=== PATIENT | male | born 1940 | race Caucasian/White ===

== ENCOUNTER 2021-08-28 11:37 | Inpatient (IN) | payer OTHER, MEDICARE, MEDICAID ==
[~2021-08-28] VITALS: Ht 177.8 cm; Wt 75.2 kg
[2021-08-28] MEDS ORDERED: MethylPREDNISolone SOD SUCC 125 MG/2 ML VIAL IVP ONE (11:45)
[2021-08-28] MEDS ORDERED: IPRATROPIUM BROMIDE 0.5 MG/2.5 ML NEB SOLUTION NEB ONE (11:45)
[2021-08-28] MEDS ORDERED: ALBUTEROL SULFATE 5 MG/ML 20 ML NEB SOLN [BULK] NEB ONE (11:45)
[2021-08-28 11:51] LABS: ABG BASE EXCESS 5.5 mmol/L (-2.0-3.0); ABG CARBOXYHEMOGLOBIN 0.6 % (0.0-1.5); ABG HCO3 28.8 mmol/L (22.0-26.0); ABG METHEMOGLOBIN 0.3 % (0.0-1.5); ABG OXYGEN CONTENT 15.4 mL/dL (15.0-23.0); ABG OXYGEN SATURATION 95.6 % (95.0-98.0); ABG OXYHEMOGLOBIN 94.7 % (94.0-100.0); ABG PCO2 47 mmHg (35-45); ABG TOTAL HEMOGLOBIN 11.5 G/dL (12.0-18.0); PO2, ARTERIAL BG 76.9 mmHg (71.0-79.0); SITE, BLOOD GAS LFT RADIAL; SOURCE, BLOOD GAS ARTERIAL; TEMPERATURE, FAHRENHEIT, BG 99.2 FAHREN (96.0-98.6)
[2021-08-28 11:52] LABS: ABG A-A DIFF O2 587.9 mmHg (10-20.0); O2 DEVICE,BLOOD GAS CPAP (ROOM AIR)
[2021-08-28 12:11] LABS: COVID AG,FIA SOURCE NASAL SWAB
[2021-08-28 12:11] LABS: BASOPHILS % (AUTO) 0.3 % (0.0-2.0); EOSINOPHILS % (AUTO) 2.6 % (1.0-6.0); HEMATOCRIT 32.7 % (41-53); HEMOGLOBIN 10.9 g/dL (13.5-17.5); LYMPHOCYTES # (AUTO) 0.5 K/uL (1.0-4.8); LYMPHOCYTES % (AUTO) 3.4 % (22.0-44.0); MEAN CORPUSCULAR HEMOGLOBIN 33.6 pg (26.0-34.0); MEAN CORPUSCULAR HGB CONC 33.4 G/dL (31.0-37.0); MEAN CORPUSCULAR VOLUME 101 fL (80-100); MONOCYTES # (AUTO) 1.3 K/uL (0.1-1.0); MONOCYTES % (AUTO) 8.2 % (2.0-9.0); NEUTROPHILS # (AUTO) 13.2 K/uL (1.8-7.7); PLATELET COUNT (AUTO) 228 K/uL (150-450); RED BLOOD CELL COUNT(AUTO) 3.25 MIL/uL (4.50-5.90); RED CELL DISTRIBUTION WIDTH 15.4 % (11.5-14.5)
[2021-08-28 12:12] LABS: NEUTROPHILS % (AUTO) 85.5 % (40.0-70.0)
[2021-08-28] MEDS ORDERED: 0.9% SODIUM CHLORIDE 15 ML NEB SOLUTION NEB ONE (12:12)
[2021-08-28 12:23] LABS: ANION GAP 12 mmol/L (8-16); CALCIUM, TOTAL 8.5 mg/dL (8.8-10.5); CARBON DIOXIDE 31 mmol/L (22-29); CHLORIDE 97 mmol/L (98-107); CREATININE 0.85 mg/dL (0.60-1.30); D-DIMER 2.88 mg/L FEU (0.00-0.50); GLOMERULAR FILTR. RATE CALC > 60 mL/min (>60); GLUCOSE,RANDOM 160 mg/dL (70-110); POTASSIUM 4.2 mmol/L (3.5-5.1); PROTHROMBIN TIME 10.8 SEC (9.4-11.6); SODIUM SERUM 140 mmol/L (136-145); UREA NITROGEN, BLOOD 23 mg/dL (7-18)
[2021-08-28 12:29] LABS: ALANINE AMINOTRANSFERASE 34 U/L (12-78); ALBUMIN 2.9 g/dL (3.4-5.0); ALKALINE PHOSPHATASE 74 U/L (46-116); ASPARTATE AMINOTRANSFERASE 27 U/L (15-37); BILIRUBIN,TOTAL 0.6 mg/dL (0.1-1.0); CREATINE KINASE, TOTAL ONLY 40 U/L (39-308); TOTAL PROTEIN, SERUM 7.4 g/dL (6.4-8.2)
[2021-08-28 12:33] LABS: B-TYPE NATRIURETIC PEPTIDE 229 pg/mL (0-100); LACTIC ACID 3.4 mmol/L (0.4-2.0)
[2021-08-28] MEDS ORDERED: AZITHROMYCIN 500 MG/NS 250 ML IV ONE (12:45)
[2021-08-28] MEDS ORDERED: CefTRIAXone 1 GM/DEXTROSE 50 ML IV ONE (12:45)
[2021-08-28] MEDS ORDERED: SODIUM CHLORIDE 0.9% 2,300 ML IV ONE (12:45)
[2021-08-28] MEDS ORDERED: ACETAMINOPHEN 1000 MG/ISO-OSM 100 ML IV ONE (13:15)
[2021-08-28] MEDS ORDERED: ACETAMINOPHEN 325 MG TABLET PO PRN (15:30)
[2021-08-28] MEDS ORDERED: ONDANSETRON HCL 4 MG/2 ML VIAL IVP PRN (15:30)
[2021-08-28] MEDS ORDERED: ZOLPIDEM TARTRATE 5 MG TABLET PO PRN (15:30)
[2021-08-28] MEDS ORDERED: MAGNESIUM HYDROXIDE SUSPENSION 30 ML UDCUP PO PRN (15:30)
[2021-08-28 15:38] LABS: INFLUENZA TYPE A NEGATIVE FOR TYPE A (NEGATIVE); INFLUENZA TYPE B NEGATIVE FOR TYPE B (NEGATIVE)
[2021-08-28] MEDS ORDERED: DOCU-350 PO (15:42)
[2021-08-28] MEDS ORDERED: SULF-261 PO (15:42)
[2021-08-28] MEDS ORDERED: NYST30CR9 TP (15:42)
[2021-08-28] MEDS ORDERED: FLUT16H NASAL (15:42)
[2021-08-28] MEDS ORDERED: DOCU-385 PO (15:42)
[2021-08-28] MEDS ORDERED: APIX5TAB PO (15:42)
[2021-08-28] MEDS ORDERED: NA P133E4 PR (15:42)
[2021-08-28] MEDS ORDERED: LEVO100 PO (15:42)
[2021-08-28] MEDS ORDERED: MAGN-169 PO (15:42)
[2021-08-28] MEDS ORDERED: BENZ-70 PO (15:42)
[2021-08-28] MEDS ORDERED: IPRA4AER IH (15:42)
[2021-08-28] MEDS ORDERED: FAMO20 PO (15:42)
[2021-08-28] MEDS ORDERED: BISA10SU11 PR (15:42)
[2021-08-28] MEDS ORDERED: SENN-295 PO (15:42)
[2021-08-28] MEDS ORDERED: PRED-554 PO (15:42)
[2021-08-28] MEDS: HEPARIN SODIUM,PORCINE 5,000 UNITS/ML VIAL SQ SCH ×2 (15:48→23:50)
[2021-08-28] MEDS ORDERED: PIPERACILLIN/TAZO 3.375 GM/D5W 50 ML IV ONE (16:00)
[2021-08-28] MEDS ORDERED: MethylPREDNISolone SOD SUCC 125 MG/2 ML VIAL IVP SCH (16:00)
[2021-08-28] MEDS ORDERED: BUDE10.27 IH (16:10)
[2021-08-28] MEDS ORDERED: ACET325S20 PR (16:10)
[2021-08-28] MEDS ORDERED: VANCOMYCIN HCL 1.5 GM in DEXTROSE 5%-WATER 250 ML IV ONE (16:30)
[2021-08-28] MEDS ORDERED: SODIUM CHLORIDE 0.9% 100 ML ONE (18:00)
[2021-08-28] MEDS ORDERED: IOHEXOL 350 MG/ML 100 ML VIAL ONE (18:00)
[2021-08-28] MEDS: MethylPREDNISolone SOD SUCC 125 MG/2 ML VIAL IVP SCH ×2 (18:37→23:51)
[2021-08-28 20:25] VITALS: BP 137/83
[2021-08-28] MEDS: ETHYL ALCOHOL 62% ANTISEPTIC NASAL SANITIZER 0.6 ML AMPUL NASAL SCH ×2 (21:00→21:33)
[2021-08-28] MEDS ORDERED: SODIUM CHLORIDE 0.9% 500 ML IV ONE (21:31)
[2021-08-28] MEDS: DOCUSATE SODIUM 100 MG CAPSULE PO SCH (21:33)
[2021-08-28] MEDS: PIPERACILLIN/TAZO 3.375 GM/D5W 50 ML IV SCH (21:34)
[2021-08-28 21:55] LABS: APPEARANCE,URINE CLEAR (CLEAR); BILIRUBIN,URINE NEGATIVE (NEGATIVE); GLUCOSE, URINE (UA) 70-100 mg/dL (NEGATIVE); KETONES,URINE NEGATIVE (NEGATIVE); LEUKOCYTE ESTERASE ,URINE NEGATIVE (NEGATIVE); NITRATE,URINE NEGATIVE (NEGATIVE); OCCULT BLOOD,URINE NEGATIVE (NEGATIVE); PROTEIN,URINE 30-70 mg/dL (NEGATIVE); UROBILINOGEN,URINE <=1.0 mg/dL (<=1.0)
[2021-08-28 21:56] LABS: SPECIFIC GRAVITIY, URINE > 1.030 (1.003-1.030)
[2021-08-28 22:03] LABS: BACTERIA,URINE None Seen /HPF (None Seen); RBC,URINE 0-2 /HPF (0-2); SQUAMOUS EPITHELIAL CELL,UR Rare /LPF (None Seen); WBC,URINE 0-2 /HPF (0-5)
[2021-08-28] MEDS ORDERED: LORazepam 2 MG/ML VIAL IVP ONE (22:45)
[2021-08-29] VITALS: BP 126/74
[2021-08-29] MEDS ORDERED: DEXMEDETOMIDINE HCL 400 MCG in SODIUM CHLORIDE 0.9% 96 ML IV PRN ×2 (03:45→04:15)
[2021-08-29 04:00] VITALS: BP 180/53
[2021-08-29] MEDS ORDERED: DEXMEDETOMIDINE HCL 200 MCG in SODIUM CHLORIDE 0.9% 48 ML IV PRN (04:00)
[2021-08-29] MEDS: PIPERACILLIN/TAZO 3.375 GM/D5W 50 ML IV SCH ×4 (04:29→23:08)
[2021-08-29] MEDS: DEXMEDETOMIDINE HCL 400 MCG in SODIUM CHLORIDE 0.9% 96 ML IV PRN ×2 (04:51→21:15)
[2021-08-29 05:20] LABS: BASOPHILS % (AUTO) 0.1 % (0.0-2.0); EOSINOPHILS % (AUTO) 0 % (1.0-6.0); HEMOGLOBIN 9.1 g/dL (13.5-17.5); LYMPHOCYTES # (AUTO) 0.2 K/uL (1.0-4.8); LYMPHOCYTES % (AUTO) 1.2 % (22.0-44.0); MEAN CORPUSCULAR HEMOGLOBIN 33.7 pg (26.0-34.0); MEAN CORPUSCULAR HGB CONC 33.7 G/dL (31.0-37.0); MEAN CORPUSCULAR VOLUME 100 fL (80-100); MONOCYTES # (AUTO) 0.2 K/uL (0.1-1.0); MONOCYTES % (AUTO) 1.3 % (2.0-9.0); NEUTROPHILS # (AUTO) 12.9 K/uL (1.8-7.7); PLATELET COUNT (AUTO) 196 K/uL (150-450); RED BLOOD CELL COUNT(AUTO) 2.71 MIL/uL (4.50-5.90); RED CELL DISTRIBUTION WIDTH 15.1 % (11.5-14.5)
[2021-08-29 05:27] LABS: NEUTROPHILS % (AUTO) 97.4 % (40.0-70.0)
[2021-08-29] MEDS: MethylPREDNISolone SOD SUCC 125 MG/2 ML VIAL IVP SCH ×4 (05:27→23:58)
[2021-08-29 05:31] LABS: ANION GAP 9 mmol/L (8-16); CALCIUM, TOTAL 8.1 mg/dL (8.8-10.5); CARBON DIOXIDE 30 mmol/L (22-29); CHLORIDE 100 mmol/L (98-107); CREATININE 0.75 mg/dL (0.60-1.30); GLUCOSE,RANDOM 179 mg/dL (70-110); POTASSIUM 4.6 mmol/L (3.5-5.1); SODIUM SERUM 139 mmol/L (136-145); UREA NITROGEN, BLOOD 21 mg/dL (7-18)
[2021-08-29 05:33] LABS: GLOMERULAR FILTR. RATE CALC > 60 mL/min (>60)
[2021-08-29] MEDS: DOCUSATE SODIUM 100 MG CAPSULE PO SCH ×3 (08:37→21:00)
[2021-08-29] MEDS: HEPARIN SODIUM,PORCINE 5,000 UNITS/ML VIAL SQ SCH ×2 (08:37→16:16)
[2021-08-29] MEDS: VANCOMYCIN HCL 750 MG in DEXTROSE 5%-WATER 250 ML IV SCH ×2 (08:37→20:53)
[2021-08-29] MEDS: ETHYL ALCOHOL 62% ANTISEPTIC NASAL SANITIZER 0.6 ML AMPUL NASAL SCH ×2 (08:38→21:15)
[2021-08-29] MEDS: PANTOPRAZOLE SODIUM 40 MG DR TABLET PO SCH ×2 (08:38→09:00)
[2021-08-29 20:21] VITALS: BP 116/76
[2021-08-29 20:30] VITALS: BP 177/66
[2021-08-29] MEDS: MORPHINE SULFATE 2 MG/ML SYRINGE IVP PRN (21:16)
[2021-08-30] VITALS: BP 119/69
[2021-08-30] MEDS: HEPARIN SODIUM,PORCINE 5,000 UNITS/ML VIAL SQ SCH ×4 (00:29→23:55)
[2021-08-30] MEDS: DEXMEDETOMIDINE HCL 400 MCG in SODIUM CHLORIDE 0.9% 96 ML IV PRN ×2 (03:38→14:09)
[2021-08-30] MEDS: PIPERACILLIN/TAZO 3.375 GM/D5W 50 ML IV SCH ×4 (03:39→21:45)
[2021-08-30 04:00] VITALS: BP 122/86
[2021-08-30] MEDS: MORPHINE SULFATE 2 MG/ML SYRINGE IVP PRN (04:58)
[2021-08-30] MEDS: MethylPREDNISolone SOD SUCC 125 MG/2 ML VIAL IVP SCH ×4 (05:00→23:55)
[2021-08-30 06:07] LABS: BASOPHILS % (AUTO) 0.1 % (0.0-2.0); EOSINOPHILS % (AUTO) 0 % (1.0-6.0); HEMATOCRIT 27.6 % (41-53); HEMOGLOBIN 9.4 g/dL (13.5-17.5); LYMPHOCYTES # (AUTO) 0.3 K/uL (1.0-4.8); LYMPHOCYTES % (AUTO) 2.2 % (22.0-44.0); MEAN CORPUSCULAR VOLUME 103 fL (80-100); MONOCYTES # (AUTO) 0.4 K/uL (0.1-1.0); MONOCYTES % (AUTO) 3.3 % (2.0-9.0); NEUTROPHILS # (AUTO) 12.3 K/uL (1.8-7.7); PLATELET COUNT (AUTO) 187 K/uL (150-450); RED BLOOD CELL COUNT(AUTO) 2.68 MIL/uL (4.50-5.90)
[2021-08-30 06:12] LABS: ANION GAP 10 mmol/L (8-16); CALCIUM, TOTAL 8.5 mg/dL (8.8-10.5); CARBON DIOXIDE 30 mmol/L (22-29); CHLORIDE 101 mmol/L (98-107); GLUCOSE,RANDOM 142 mg/dL (70-110); POTASSIUM 4.7 mmol/L (3.5-5.1); SODIUM SERUM 141 mmol/L (136-145); UREA NITROGEN, BLOOD 34 mg/dL (7-18)
[2021-08-30 06:17] LABS: NEUTROPHILS % (AUTO) 94.4 % (40.0-70.0)
[2021-08-30 06:23] LABS: GLOMERULAR FILTR. RATE CALC > 60 mL/min (>60)
[2021-08-30 08:00] VITALS: BP 115/92
[2021-08-30] MEDS: ETHYL ALCOHOL 62% ANTISEPTIC NASAL SANITIZER 0.6 ML AMPUL NASAL SCH ×2 (09:01→21:45)
[2021-08-30] MEDS: VANCOMYCIN HCL 1 GM in DEXTROSE 5%-WATER 250 ML IV SCH ×2 (09:01→20:28)
[2021-08-30] MEDS: PANTOPRAZOLE SODIUM 40 MG DR TABLET PO SCH (09:01)
[2021-08-30] MEDS: DOCUSATE SODIUM 100 MG CAPSULE PO SCH ×2 (09:02→21:00)
[2021-08-30 12:00] VITALS: BP 105/89
[2021-08-30] MEDS ORDERED: AMIODARONE HCL 150 MG in DEXTROSE 5%-WATER 97 ML IV ONE (13:00)
[2021-08-30] MEDS ORDERED: SODIUM CHLORIDE 0.9% 500 ML IV ONE (13:00)
[2021-08-30] MEDS ORDERED: AMIODARONE HCL 360 MG in DEXTROSE 5%-WATER 242.8 ML IV ONE (13:00)
[2021-08-30] MEDS: FUROSEMIDE 20 MG TABLET PO SCH (13:27)
[2021-08-30] MEDS: LORazepam 2 MG/ML VIAL IVP PRN ×2 (13:27→22:23)
[2021-08-30 16:00] VITALS: BP 107/87
[2021-08-30] MEDS ORDERED: FUROSEMIDE 20 MG/2 ML VIAL IVP ONE (16:15)
[2021-08-30 20:00] VITALS: BP 111/80
[2021-08-30] MEDS ORDERED: AMIODARONE HCL 540 MG in DEXTROSE 5%-WATER 239.2 ML IV ONE (20:00)
[2021-08-30] MEDS: CARVEDILOL 3.125 MG TABLET PO SCH (21:45)
[2021-08-31] VITALS: BP 114/83
[2021-08-31] MEDS: DEXMEDETOMIDINE HCL 400 MCG in SODIUM CHLORIDE 0.9% 96 ML IV PRN ×4 (02:56→20:19)
[2021-08-31 04:00] VITALS: BP 121/91
[2021-08-31] MEDS: PIPERACILLIN/TAZO 3.375 GM/D5W 50 ML IV SCH ×4 (04:35→22:45)
[2021-08-31] MEDS: MethylPREDNISolone SOD SUCC 125 MG/2 ML VIAL IVP SCH ×3 (05:10→18:18)
[2021-08-31 05:49] LABS: BASOPHILS % (AUTO) 0.1 % (0.0-2.0); EOSINOPHILS % (AUTO) 0 % (1.0-6.0); HEMATOCRIT 28.1 % (41-53); HEMOGLOBIN 9.7 g/dL (13.5-17.5); LYMPHOCYTES # (AUTO) 0.2 K/uL (1.0-4.8); LYMPHOCYTES % (AUTO) 1.9 % (22.0-44.0); MEAN CORPUSCULAR HEMOGLOBIN 34.4 pg (26.0-34.0); MEAN CORPUSCULAR HGB CONC 34.4 G/dL (31.0-37.0); MEAN CORPUSCULAR VOLUME 100 fL (80-100); MONOCYTES # (AUTO) 0.3 K/uL (0.1-1.0); MONOCYTES % (AUTO) 3.4 % (2.0-9.0); NEUTROPHILS # (AUTO) 9.1 K/uL (1.8-7.7); PLATELET COUNT (AUTO) 191 K/uL (150-450); RED BLOOD CELL COUNT(AUTO) 2.81 MIL/uL (4.50-5.90); RED CELL DISTRIBUTION WIDTH 15.5 % (11.5-14.5)
[2021-08-31 05:55] LABS: NEUTROPHILS % (AUTO) 94.6 % (40.0-70.0)
[2021-08-31 06:13] LABS: ANION GAP 8 mmol/L (8-16); CALCIUM, TOTAL 8.2 mg/dL (8.8-10.5); CARBON DIOXIDE 32 mmol/L (22-29); CHLORIDE 100 mmol/L (98-107); CREATININE 1.09 mg/dL (0.60-1.30); GLUCOSE,RANDOM 146 mg/dL (70-110); POTASSIUM 3.7 mmol/L (3.5-5.1); SODIUM SERUM 140 mmol/L (136-145); THYROID STIMULATING HORMONE 1.53 uIU/mL (0.36-3.74); UREA NITROGEN, BLOOD 45 mg/dL (7-18)
[2021-08-31 06:15] LABS: GLOMERULAR FILTR. RATE CALC > 60 mL/min (>60)
[2021-08-31] MEDS: VANCOMYCIN HCL 1 GM in DEXTROSE 5%-WATER 250 ML IV SCH ×2 (07:50→20:07)
[2021-08-31 08:00] VITALS: BP 124/64
[2021-08-31] MEDS: ETHYL ALCOHOL 62% ANTISEPTIC NASAL SANITIZER 0.6 ML AMPUL NASAL SCH ×2 (08:51→22:46)
[2021-08-31] MEDS: HEPARIN SODIUM,PORCINE 5,000 UNITS/ML VIAL SQ SCH (08:51)
[2021-08-31] MEDS: CARVEDILOL 3.125 MG TABLET PO SCH ×2 (08:52→21:00)
[2021-08-31] MEDS: FUROSEMIDE 20 MG TABLET PO SCH (08:52)
[2021-08-31] MEDS: PANTOPRAZOLE SODIUM 40 MG DR TABLET PO SCH (08:52)
[2021-08-31] MEDS: DOCUSATE SODIUM 100 MG CAPSULE PO SCH ×2 (08:52→21:00)
[2021-08-31 12:00] VITALS: BP 127/81
[2021-08-31] MEDS: APIXABAN 5 MG TABLET PO SCH ×2 (12:39→21:00)
[2021-08-31] MEDS ORDERED: AMIODARONE HCL 750 MG in DEXTROSE 5%-WATER 485 ML IV SCH (14:00)
[2021-08-31 16:00] VITALS: BP 121/69
[2021-08-31 20:00] VITALS: BP 129/80
[2021-08-31] MEDS ORDERED: SODIUM CHLORIDE 0.9% 250 ML IV ONE (20:13)
[2021-09-01] VITALS: BP 133/85
[2021-09-01] MEDS: MethylPREDNISolone SOD SUCC 125 MG/2 ML VIAL IVP SCH ×5 (02:08→23:15)
[2021-09-01] MEDS: DEXMEDETOMIDINE HCL 400 MCG in SODIUM CHLORIDE 0.9% 96 ML IV PRN ×4 (02:09→23:21)
[2021-09-01] MEDS: LORazepam 2 MG/ML VIAL IVP PRN ×3 (02:20→23:49)
[2021-09-01 04:00] VITALS: BP 139/91
[2021-09-01] MEDS: PIPERACILLIN/TAZO 3.375 GM/D5W 50 ML IV SCH ×4 (04:43→23:14)
[2021-09-01 05:35] LABS: BASOPHILS % (AUTO) 0.1 % (0.0-2.0); EOSINOPHILS % (AUTO) 0 % (1.0-6.0); HEMATOCRIT 30.1 % (41-53); HEMOGLOBIN 10.1 g/dL (13.5-17.5); LYMPHOCYTES # (AUTO) 0.2 K/uL (1.0-4.8); LYMPHOCYTES % (AUTO) 1.8 % (22.0-44.0); MEAN CORPUSCULAR HEMOGLOBIN 33.4 pg (26.0-34.0); MEAN CORPUSCULAR HGB CONC 33.7 G/dL (31.0-37.0); MEAN CORPUSCULAR VOLUME 99 fL (80-100); MONOCYTES # (AUTO) 0.3 K/uL (0.1-1.0); MONOCYTES % (AUTO) 3.4 % (2.0-9.0); NEUTROPHILS # (AUTO) 8.8 K/uL (1.8-7.7); PLATELET COUNT (AUTO) 188 K/uL (150-450); RED BLOOD CELL COUNT(AUTO) 3.03 MIL/uL (4.50-5.90); RED CELL DISTRIBUTION WIDTH 15.1 % (11.5-14.5)
[2021-09-01 05:51] LABS: ANION GAP 11 mmol/L (8-16); CALCIUM, TOTAL 8.1 mg/dL (8.8-10.5); CARBON DIOXIDE 32 mmol/L (22-29); CHLORIDE 100 mmol/L (98-107); CREATININE 0.97 mg/dL (0.60-1.30); GLUCOSE,RANDOM 143 mg/dL (70-110); POTASSIUM 3.9 mmol/L (3.5-5.1); SODIUM SERUM 143 mmol/L (136-145); UREA NITROGEN, BLOOD 49 mg/dL (7-18); VANCOMYCIN,RANDOM 20.2 mcg/mL (25.0-50.0)
[2021-09-01 05:52] LABS: GLOMERULAR FILTR. RATE CALC > 60 mL/min (>60)
[2021-09-01 06:08] LABS: B-TYPE NATRIURETIC PEPTIDE 829 pg/mL (0-100)
[2021-09-01 06:11] LABS: NEUTROPHILS % (AUTO) 94.7 % (40.0-70.0)
[2021-09-01] MEDS: DOCUSATE SODIUM 100 MG CAPSULE PO SCH ×3 (07:40→21:00)
[2021-09-01] MEDS: ETHYL ALCOHOL 62% ANTISEPTIC NASAL SANITIZER 0.6 ML AMPUL NASAL SCH ×2 (07:40→21:00)
[2021-09-01] MEDS: FUROSEMIDE 20 MG TABLET PO SCH ×2 (07:40→09:00)
[2021-09-01] MEDS: PANTOPRAZOLE SODIUM 40 MG DR TABLET PO SCH ×2 (07:40→09:00)
[2021-09-01] MEDS: VANCOMYCIN HCL 1 GM in DEXTROSE 5%-WATER 250 ML IV SCH (07:40)
[2021-09-01] MEDS: CARVEDILOL 3.125 MG TABLET PO SCH ×2 (07:40→21:00)
[2021-09-01] MEDS: APIXABAN 5 MG TABLET PO SCH ×2 (07:42→21:23)
[2021-09-01 08:00] VITALS: BP 134/88
[2021-09-01] MEDS ORDERED: FUROSEMIDE 20 MG/2 ML VIAL IVP ONE (09:00)
[2021-09-01 12:00] VITALS: BP 133/73
[2021-09-01 16:00] VITALS: BP 146/77
[2021-09-01 20:00] VITALS: BP 140/84
[2021-09-01] MEDS: VANCOMYCIN 1GM/WATER(PEG/NADA) 200 ML IV SCH (20:32)
[2021-09-01] MEDS ORDERED: SODIUM CHLORIDE 0.9% 250 ML IV ONE (23:08)
[2021-09-02] VITALS: BP 124/77
[2021-09-02 04:00] VITALS: BP 128/75
[2021-09-02] MEDS: MethylPREDNISolone SOD SUCC 125 MG/2 ML VIAL IVP SCH ×4 (05:03→23:09)
[2021-09-02] MEDS: PIPERACILLIN/TAZO 3.375 GM/D5W 50 ML IV SCH ×4 (05:03→23:09)
[2021-09-02 05:49] LABS: ANION GAP 5 mmol/L (8-16); CARBON DIOXIDE 34 mmol/L (22-29); CHLORIDE 102 mmol/L (98-107); CREATININE 0.85 mg/dL (0.60-1.30); GLUCOSE,RANDOM 132 mg/dL (70-110); POTASSIUM 3.3 mmol/L (3.5-5.1); SODIUM SERUM 141 mmol/L (136-145); UREA NITROGEN, BLOOD 45 mg/dL (7-18)
[2021-09-02 05:51] LABS: GLOMERULAR FILTR. RATE CALC > 60 mL/min (>60)
[2021-09-02] MEDS: DEXMEDETOMIDINE HCL 400 MCG in SODIUM CHLORIDE 0.9% 96 ML IV PRN (06:28)
[2021-09-02 08:00] VITALS: BP 123/83
[2021-09-02] MEDS: DOCUSATE SODIUM 100 MG CAPSULE PO SCH ×2 (08:01→21:00)
[2021-09-02] MEDS: PANTOPRAZOLE SODIUM 40 MG DR TABLET PO SCH ×2 (08:01→09:00)
[2021-09-02] MEDS: ETHYL ALCOHOL 62% ANTISEPTIC NASAL SANITIZER 0.6 ML AMPUL NASAL SCH ×2 (08:01→23:01)
[2021-09-02] MEDS: FUROSEMIDE 40 MG/4 ML VIAL IVP SCH (08:01)
[2021-09-02] MEDS: APIXABAN 5 MG TABLET PO SCH ×2 (08:01→09:00)
[2021-09-02] MEDS: VANCOMYCIN 1GM/WATER(PEG/NADA) 200 ML IV SCH ×2 (08:01→23:03)
[2021-09-02] MEDS: CARVEDILOL 3.125 MG TABLET PO SCH ×2 (08:02→21:00)
[2021-09-02 12:00] VITALS: BP 121/69
[2021-09-02] MEDS: LORazepam 2 MG/ML VIAL IVP PRN ×2 (13:08→20:58)
[2021-09-02 16:00] VITALS: BP 134/99
[2021-09-02] MEDS: ENOXAPARIN SODIUM 60 MG/0.6 ML PF SYRINGE SQ SCH (21:00)
[2021-09-03] MEDS: PIPERACILLIN/TAZO 3.375 GM/D5W 50 ML IV SCH ×2 (03:11→12:51)
[2021-09-03 04:00] VITALS: BP 140/88
[2021-09-03 06:31] LABS: ANION GAP 6 mmol/L (8-16); CALCIUM, TOTAL 8.2 mg/dL (8.8-10.5); CARBON DIOXIDE 35 mmol/L (22-29); CHLORIDE 101 mmol/L (98-107); CREATININE 0.63 mg/dL (0.60-1.30); GLUCOSE,RANDOM 80 mg/dL (70-110); SODIUM SERUM 142 mmol/L (136-145); UREA NITROGEN, BLOOD 33 mg/dL (7-18)
[2021-09-03] MEDS: MethylPREDNISolone SOD SUCC 125 MG/2 ML VIAL IVP SCH ×2 (06:36→12:53)
[2021-09-03 06:38] LABS: GLOMERULAR FILTR. RATE CALC > 60 mL/min (>60); POTASSIUM 2.9 mmol/L (3.5-5.1)
[2021-09-03 08:00] VITALS: BP 148/91
[2021-09-03] MEDS: VANCOMYCIN 1GM/WATER(PEG/NADA) 200 ML IV SCH (08:51)
[2021-09-03] MEDS: ENOXAPARIN SODIUM 60 MG/0.6 ML PF SYRINGE SQ SCH ×2 (08:51→21:17)
[2021-09-03] MEDS: CARVEDILOL 3.125 MG TABLET PO SCH ×2 (08:52→21:02)
[2021-09-03] MEDS: POTASSIUM CHL 10 MEQ/WATER 50 ML IV PRN ×5 (08:52→19:39)
[2021-09-03] MEDS: FUROSEMIDE 40 MG/4 ML VIAL IVP SCH (08:52)
[2021-09-03] MEDS: DOCUSATE SODIUM 100 MG CAPSULE PO SCH ×2 (08:53→21:02)
[2021-09-03] MEDS: PANTOPRAZOLE SODIUM 40 MG DR TABLET PO SCH (08:53)
[2021-09-03] MEDS: ETHYL ALCOHOL 62% ANTISEPTIC NASAL SANITIZER 0.6 ML AMPUL NASAL SCH (08:54)
[2021-09-03] MEDS: LORazepam 2 MG/ML VIAL IVP PRN (09:23)
[2021-09-03] MEDS ORDERED: SODIUM CHLORIDE 0.9% 250 ML IV ONE (09:50)
[2021-09-03] MEDS ORDERED: SACUBITRIL/VALSARTAN 24-26 MG TABLET PO SCH (11:00)
[2021-09-03 12:50] VITALS: BP 137/77
[2021-09-03 16:05] VITALS: BP 127/77
[2021-09-03] MEDS: MORPHINE SULFATE 2 MG/ML SYRINGE IVP PRN (17:15)
[2021-09-03 19:58] VITALS: BP 140/95
[2021-09-03 23:34] VITALS: BP 151/91
[2021-09-04 04:22] VITALS: BP 152/86
[2021-09-04 07:56] VITALS: BP 155/89
[2021-09-04] MEDS: DOCUSATE SODIUM 100 MG CAPSULE PO SCH ×2 (09:12→20:34)
[2021-09-04] MEDS: ENOXAPARIN SODIUM 60 MG/0.6 ML PF SYRINGE SQ SCH ×2 (09:12→20:34)
[2021-09-04] MEDS: CARVEDILOL 3.125 MG TABLET PO SCH ×2 (09:12→20:34)
[2021-09-04] MEDS: PANTOPRAZOLE SODIUM 40 MG DR TABLET PO SCH (09:12)
[2021-09-04 09:47] LABS: ANION GAP 10 mmol/L (8-16); CALCIUM, TOTAL 8.5 mg/dL (8.8-10.5); CARBON DIOXIDE 34 mmol/L (22-29); CHLORIDE 101 mmol/L (98-107); CREATININE 0.66 mg/dL (0.60-1.30); GLOMERULAR FILTR. RATE CALC > 60 mL/min (>60); GLUCOSE,RANDOM 122 mg/dL (70-110); POTASSIUM 3.9 mmol/L (3.5-5.1); SODIUM SERUM 145 mmol/L (136-145); UREA NITROGEN, BLOOD 38 mg/dL (7-18); VANCOMYCIN,RANDOM 11.3 mcg/mL (25.0-50.0)
[2021-09-04 12:01] VITALS: BP 128/84
[2021-09-04 15:21] VITALS: BP 143/71
[2021-09-04] MEDS: FUROSEMIDE 20 MG TABLET PO SCH (15:24)
[2021-09-04] MEDS: LORazepam 2 MG/ML VIAL IVP PRN (16:59)
[2021-09-04] MEDS: LOSARTAN POTASSIUM 25 MG TABLET PO SCH (20:34)
[2021-09-04 20:42] VITALS: BP 141/102
[2021-09-04 22:39] VITALS: BP 137/83
[2021-09-05 03:37] VITALS: BP 122/72
[2021-09-05 06:50] LABS: BASOPHILS % (AUTO) 0.2 % (0.0-2.0); EOSINOPHILS % (AUTO) 3.5 % (1.0-6.0); HEMATOCRIT 36.3 % (41-53); HEMOGLOBIN 12.1 g/dL (13.5-17.5); LYMPHOCYTES # (AUTO) 0.5 K/uL (1.0-4.8); LYMPHOCYTES % (AUTO) 4.4 % (22.0-44.0); MEAN CORPUSCULAR HEMOGLOBIN 33.6 pg (26.0-34.0); MEAN CORPUSCULAR HGB CONC 33.2 G/dL (31.0-37.0); MEAN CORPUSCULAR VOLUME 101 fL (80-100); MONOCYTES # (AUTO) 0.7 K/uL (0.1-1.0); MONOCYTES % (AUTO) 6.3 % (2.0-9.0); NEUTROPHILS # (AUTO) 9.1 K/uL (1.8-7.7); PLATELET COUNT (AUTO) 264 K/uL (150-450); RED BLOOD CELL COUNT(AUTO) 3.59 MIL/uL (4.50-5.90); RED CELL DISTRIBUTION WIDTH 15.3 % (11.5-14.5)
[2021-09-05 07:00] LABS: NEUTROPHILS % (AUTO) 85.6 % (40.0-70.0)
[2021-09-05 07:08] LABS: ALANINE AMINOTRANSFERASE 61 U/L (12-78); ALBUMIN 2.5 g/dL (3.4-5.0); ALKALINE PHOSPHATASE 71 U/L (46-116); ANION GAP 5 mmol/L (8-16); ASPARTATE AMINOTRANSFERASE 18 U/L (15-37); BILIRUBIN,TOTAL 0.8 mg/dL (0.1-1.0); CARBON DIOXIDE 38 mmol/L (22-29); CHLORIDE 102 mmol/L (98-107); CREATININE 0.52 mg/dL (0.60-1.30); GLUCOSE,RANDOM 100 mg/dL (70-110); SODIUM SERUM 145 mmol/L (136-145); TOTAL PROTEIN, SERUM 6.5 g/dL (6.4-8.2); UREA NITROGEN, BLOOD 28 mg/dL (7-18)
[2021-09-05 07:11] LABS: GLOMERULAR FILTR. RATE CALC > 60 mL/min (>60)
[2021-09-05 08:16] VITALS: BP 136/97
[2021-09-05] MEDS: ENOXAPARIN SODIUM 60 MG/0.6 ML PF SYRINGE SQ SCH (08:44)
[2021-09-05] MEDS: DOCUSATE SODIUM 100 MG CAPSULE PO SCH ×3 (08:44→21:00)
[2021-09-05] MEDS: FUROSEMIDE 20 MG TABLET PO SCH ×2 (08:44→09:00)
[2021-09-05] MEDS: PANTOPRAZOLE SODIUM 40 MG DR TABLET PO SCH ×2 (08:44→09:00)
[2021-09-05] MEDS: CARVEDILOL 3.125 MG TABLET PO SCH ×3 (08:44→21:29)
[2021-09-05] MEDS: POTASSIUM CHLORIDE 20 MEQ ER TABLET PO PRN ×2 (08:44→23:51)
[2021-09-05] MEDS ORDERED: PHYTONADIONE 10 MG/1 ML AMP IM ONE (10:30)
[2021-09-05] MEDS: MORPHINE SULFATE 2 MG/ML SYRINGE IVP PRN (13:45)
[2021-09-05 16:00] VITALS: BP 152/84
[2021-09-05 20:56] VITALS: BP 135/83
[2021-09-05] MEDS: LOSARTAN POTASSIUM 25 MG TABLET PO SCH (21:27)
[2021-09-06 03:45] VITALS: BP 129/92
[2021-09-06 07:48] VITALS: BP 113/79
[2021-09-06] MEDS: MORPHINE SULFATE 2 MG/ML SYRINGE IVP PRN ×4 (08:05→21:17)
[2021-09-06] MEDS: DOCUSATE SODIUM 100 MG CAPSULE PO SCH ×2 (08:05→21:00)
[2021-09-06] MEDS: CARVEDILOL 3.125 MG TABLET PO SCH ×2 (08:05→21:17)
[2021-09-06] MEDS: FUROSEMIDE 20 MG TABLET PO SCH (08:05)
[2021-09-06] MEDS: PANTOPRAZOLE SODIUM 40 MG DR TABLET PO SCH (08:05)
[2021-09-06] MEDS: HYDROCODONE/ACETAMINOPHEN 5-325 MG TABLET PO PRN (08:06)
[2021-09-06] MEDS: LORazepam 2 MG/ML VIAL IVP PRN ×2 (12:50→18:25)
[2021-09-06 16:47] VITALS: BP 136/92
[2021-09-06 20:00] VITALS: BP 140/75
[2021-09-06] MEDS: LOSARTAN POTASSIUM 25 MG TABLET PO SCH (21:17)
[2021-09-07] MEDS: LORazepam 2 MG/ML VIAL IVP PRN ×3 (00:33→21:16)
[2021-09-07] MEDS: MORPHINE SULFATE 2 MG/ML SYRINGE IVP PRN ×3 (00:34→20:05)
[2021-09-07 05:26] VITALS: BP 126/80
[2021-09-07 08:36] VITALS: BP 137/84
[2021-09-07] MEDS: PANTOPRAZOLE SODIUM 40 MG DR TABLET PO SCH (09:40)
[2021-09-07] MEDS: CARVEDILOL 3.125 MG TABLET PO SCH (09:41)
[2021-09-07] MEDS: DOCUSATE SODIUM 100 MG CAPSULE PO SCH (09:41)
[2021-09-07] MEDS: FUROSEMIDE 20 MG TABLET PO SCH (09:41)
[2021-09-07 15:20] VITALS: BP 128/63
[2021-09-07 19:51] VITALS: BP 123/69
[2021-09-08] MEDS: LORazepam 2 MG/ML VIAL IVP PRN ×3 (02:03→22:10)
[2021-09-08 04:03] VITALS: BP 149/75
[2021-09-08] MEDS: MORPHINE SULFATE 2 MG/ML SYRINGE IVP PRN ×3 (06:35→20:39)
[2021-09-08 08:25] VITALS: BP 134/79
[2021-09-08 15:25] VITALS: BP 106/55
[2021-09-08 19:25] VITALS: BP 107/54
[2021-09-09] MEDS: LORazepam 2 MG/ML VIAL IVP PRN ×3 (02:19→20:33)
[2021-09-09 05:06] VITALS: BP 129/79
[2021-09-09 08:40] VITALS: BP 143/90
[2021-09-09] MEDS: MORPHINE SULFATE 2 MG/ML SYRINGE IVP PRN ×2 (10:39→15:51)
[2021-09-09 16:08] VITALS: BP 112/75
[2021-09-09 20:05] VITALS: BP 130/69
[2021-09-09 20:13] VITALS: BP 130/69
[2021-09-10] MEDS: LORazepam 2 MG/ML VIAL IVP PRN ×3 (00:07→22:41)
[2021-09-10 03:30] VITALS: BP 119/67
[2021-09-10] MEDS: LORazepam 2 MG/ML VIAL IVP SCH (06:40)
[2021-09-10] MEDS: MORPHINE SULFATE 2 MG/ML SYRINGE IVP PRN (10:10)
[2021-09-10 19:47] VITALS: BP 99/63
[2021-09-11] MEDS: MORPHINE SULFATE 2 MG/ML SYRINGE IVP PRN ×2 (03:08→15:02)
[2021-09-11 04:24] VITALS: BP 95/60
[2021-09-11] MEDS: LORazepam 2 MG/ML VIAL IVP SCH (09:16)
[2021-09-11 09:42] VITALS: BP 112/74
[2021-09-11] MEDS: LORazepam 2 MG/ML VIAL IVP PRN (18:07)
[2021-09-11 20:33] VITALS: BP 109/45
[2021-09-12 04:18] VITALS: BP 124/87
[2021-09-12] MEDS: LORazepam 2 MG/ML VIAL IVP SCH (06:34)
[2021-09-12 08:04] VITALS: BP 130/69
[2021-09-12] MEDS: MORPHINE SULFATE 2 MG/ML SYRINGE IVP PRN ×3 (14:40→21:04)
[2021-09-12] MEDS: LORazepam 2 MG/ML VIAL IVP PRN ×2 (14:49→20:04)
[2021-09-12 15:42] VITALS: BP 128/66
[2021-09-12 20:49] VITALS: BP 98/63
[2021-09-13 04:25] VITALS: BP 120/78
[2021-09-13] MEDS: LORazepam 2 MG/ML VIAL IVP SCH (06:10)
[2021-09-13 08:02] VITALS: BP 118/77
[2021-09-13] MEDS: LORazepam 2 MG/ML VIAL IVP PRN (11:29)
[2021-09-13] MEDS: MORPHINE SULFATE 2 MG/ML SYRINGE IVP PRN ×3 (11:31→22:10)
[2021-09-13 15:56] VITALS: BP 112/66
[2021-09-13 20:21] VITALS: BP 116/71
[2021-09-14 05:22] VITALS: BP 118/69
[2021-09-14] MEDS: LORazepam 2 MG/ML VIAL IVP SCH (06:31)
[2021-09-14 08:20] VITALS: BP 112/61
[2021-09-14] MEDS: LORazepam 2 MG/ML VIAL IVP PRN ×2 (10:59→21:10)
[2021-09-14] MEDS: MORPHINE SULFATE 2 MG/ML SYRINGE IVP PRN ×2 (10:59→19:42)
[2021-09-14 16:32] VITALS: BP 117/62
[2021-09-14 20:00] VITALS: BP 109/68
[2021-09-14] MEDS: DOCUSATE SODIUM 100 MG CAPSULE PO SCH (21:06)
[2021-09-15] MEDS: LORazepam 2 MG/ML VIAL IVP PRN ×2 (02:33→19:36)
[2021-09-15 04:00] VITALS: BP 119/64
[2021-09-15 08:00] VITALS: BP 123/68
[2021-09-15] MEDS: DOCUSATE SODIUM 100 MG CAPSULE PO SCH ×3 (09:11→21:00)
[2021-09-15] MEDS: LORazepam 2 MG/ML VIAL IVP SCH (09:11)
[2021-09-15] MEDS: HYDROCODONE/ACETAMINOPHEN 5-325 MG TABLET PO PRN (10:45)
[2021-09-15 16:00] VITALS: BP 106/78
[2021-09-15] MEDS: BISACODYL 10 MG RECTAL RECTAL SUPPOSITORY PR PRN (17:25)
[2021-09-15 19:50] VITALS: BP 130/64
[2021-09-15] MEDS: MORPHINE SULFATE 2 MG/ML SYRINGE IVP PRN (22:11)
[2021-09-16] MEDS: LORazepam 2 MG/ML VIAL IVP PRN ×2 (00:19→21:50)
[2021-09-16 04:25] VITALS: BP 116/72
[2021-09-16 08:00] VITALS: BP 119/74
[2021-09-16] MEDS: DOCUSATE SODIUM 100 MG CAPSULE PO SCH ×2 (08:31→21:08)
[2021-09-16] MEDS: HYDROCODONE/ACETAMINOPHEN 5-325 MG TABLET PO PRN (08:31)
[2021-09-16] MEDS: LORazepam 2 MG/ML VIAL IVP SCH (08:31)
[2021-09-16 16:00] VITALS: BP 126/77
[2021-09-16 20:15] VITALS: BP 91/55
[2021-09-16 21:43] VITALS: BP 117/79
[2021-09-17] MEDS: LORazepam 2 MG/ML VIAL IVP PRN ×3 (02:27→22:19)
[2021-09-17 06:39] VITALS: BP 94/55
[2021-09-17] MEDS: LORazepam 2 MG/ML VIAL IVP SCH (06:47)
[2021-09-17 07:48] VITALS: BP 115/93
[2021-09-17] MEDS: DOCUSATE SODIUM 100 MG CAPSULE PO SCH ×2 (09:00→21:00)
[2021-09-17 15:51] VITALS: BP 133/65
[2021-09-17 19:36] VITALS: BP 110/63
[2021-09-18 05:21] VITALS: BP 125/86
[2021-09-18] MEDS: LORazepam 2 MG/ML VIAL IVP SCH ×2 (06:32→10:31)
[2021-09-18 08:21] VITALS: BP 118/73
[2021-09-18] MEDS: DOCUSATE SODIUM 100 MG CAPSULE PO SCH ×2 (09:10→20:17)
[2021-09-18] MEDS: MORPHINE SULFATE 2 MG/ML SYRINGE IVP PRN (15:29)
[2021-09-18 16:04] VITALS: BP 129/71
[2021-09-18 19:57] VITALS: BP 132/77
[2021-09-18] MEDS: LORazepam 2 MG/ML VIAL IVP PRN (20:54)
[2021-09-19 04:48] VITALS: BP 119/70
[2021-09-19 06:12] VITALS: BP 118/80
[2021-09-19] MEDS: LORazepam 2 MG/ML VIAL IVP PRN ×3 (06:14→19:59)
[2021-09-19 08:05] VITALS: BP 123/77
[2021-09-19] MEDS: DOCUSATE SODIUM 100 MG CAPSULE PO SCH ×2 (09:00→20:05)
[2021-09-19] MEDS: MORPHINE SULFATE 2 MG/ML SYRINGE IVP PRN ×2 (12:03→23:16)
[2021-09-19 15:41] VITALS: BP 123/87
[2021-09-19 19:31] VITALS: BP 116/75
[2021-09-20 04:53] VITALS: BP 143/80
[2021-09-20] MEDS: LORazepam 2 MG/ML VIAL IVP PRN ×3 (05:16→20:53)
[2021-09-20] MEDS: LORazepam 2 MG/ML VIAL IVP SCH (07:53)
[2021-09-20 07:59] VITALS: BP 146/81
[2021-09-20] MEDS: DOCUSATE SODIUM 100 MG CAPSULE PO SCH ×2 (09:00→20:50)
[2021-09-20] MEDS: MORPHINE SULFATE 2 MG/ML SYRINGE IVP PRN ×3 (13:56→23:56)
[2021-09-20 15:28] VITALS: BP 121/70
[2021-09-20 20:47] VITALS: BP 115/66
[2021-09-21] MEDS: LORazepam 2 MG/ML VIAL IVP PRN ×3 (01:23→18:36)
[2021-09-21] MEDS: MORPHINE SULFATE 2 MG/ML SYRINGE IVP PRN ×6 (02:13→18:36)
[2021-09-21 04:27] VITALS: BP 111/65
[2021-09-21] MEDS: LORazepam 2 MG/ML VIAL IVP SCH (06:39)
[2021-09-21 08:23] VITALS: BP 109/62
[2021-09-21 16:00] VITALS: BP 114/70
[2021-09-21 20:10] VITALS: BP 117/64
[2021-09-21] MEDS: DOCUSATE SODIUM 100 MG CAPSULE PO SCH (20:43)
[2021-09-22 03:53] VITALS: BP 110/66
[2021-09-22] MEDS: LORazepam 2 MG/ML VIAL IVP SCH (06:24)
[2021-09-22] MEDS: DOCUSATE SODIUM 100 MG CAPSULE PO SCH ×2 (07:50→21:00)
[2021-09-22] MEDS: LORazepam 2 MG/ML VIAL IVP PRN ×2 (08:16→14:12)
[2021-09-22] MEDS: MORPHINE SULFATE 2 MG/ML SYRINGE IVP PRN ×3 (08:18→16:56)
[2021-09-22 08:35] VITALS: BP 137/88
[2021-09-22 16:22] VITALS: BP 115/68
[2021-09-22 19:55] VITALS: BP 132/85
[2021-09-23] MEDS: LORazepam 2 MG/ML VIAL IVP PRN ×3 (03:11→21:07)
[2021-09-23 04:26] VITALS: BP 113/74
[2021-09-23] MEDS: LORazepam 2 MG/ML VIAL IVP SCH (07:51)
[2021-09-23 08:08] VITALS: BP 117/70
[2021-09-23] MEDS: DOCUSATE SODIUM 100 MG CAPSULE PO SCH ×2 (09:36→20:47)
[2021-09-23] MEDS: MORPHINE SULFATE 2 MG/ML SYRINGE IVP PRN (11:46)
[2021-09-23 16:09] VITALS: BP 129/72
[2021-09-23 20:00] VITALS: BP 126/76
[2021-09-24] MEDS: LORazepam 2 MG/ML VIAL IVP PRN ×2 (02:16→23:03)
[2021-09-24 04:35] VITALS: BP 135/88
[2021-09-24] MEDS: MORPHINE SULFATE 2 MG/ML SYRINGE IVP PRN (05:45)
[2021-09-24] MEDS: LORazepam 2 MG/ML VIAL IVP SCH (07:00)
[2021-09-24 08:00] VITALS: BP 142/96
[2021-09-24] MEDS: DOCUSATE SODIUM 100 MG CAPSULE PO SCH ×2 (08:35→20:30)
[2021-09-24 20:39] VITALS: BP 120/73
[2021-09-25] MEDS: MORPHINE SULFATE 2 MG/ML SYRINGE IVP PRN ×2 (01:29→19:57)
[2021-09-25 04:02] VITALS: BP 140/79
[2021-09-25] MEDS: LORazepam 2 MG/ML VIAL IVP SCH (06:06)
[2021-09-25 08:04] VITALS: BP 91/59
[2021-09-25] MEDS: DOCUSATE SODIUM 100 MG CAPSULE PO SCH ×3 (09:00→21:00)
[2021-09-25 16:04] VITALS: BP 128/83
[2021-09-25] MEDS: LORazepam 2 MG/ML VIAL IVP PRN (18:31)
[2021-09-25 19:33] VITALS: BP 117/69
[2021-09-26] MEDS: MORPHINE SULFATE 2 MG/ML SYRINGE IVP PRN ×4 (01:01→17:57)
[2021-09-26 04:39] VITALS: BP 108/71
[2021-09-26] MEDS: LORazepam 2 MG/ML VIAL IVP SCH ×2 (06:06→19:51)
[2021-09-26 08:00] VITALS: BP 125/89
[2021-09-26] MEDS: DOCUSATE SODIUM 100 MG CAPSULE PO SCH ×2 (09:00→19:51)
[2021-09-26] MEDS: LORazepam 2 MG/ML VIAL IVP PRN (14:38)
[2021-09-26 16:00] VITALS: BP 129/75
[2021-09-26 19:57] VITALS: BP 110/75
[2021-09-27] MEDS: LORazepam 2 MG/ML VIAL IVP SCH ×4 (01:49→23:44)
[2021-09-27] MEDS: DiphenhydrAMINE HCL 50 MG/ML VIAL IVP PRN (02:49)
[2021-09-27 04:47] VITALS: BP 118/67
[2021-09-27 08:04] VITALS: BP 112/73
[2021-09-27] MEDS: MORPHINE SULFATE 2 MG/ML SYRINGE IVP PRN ×3 (08:13→15:52)
[2021-09-27] MEDS: DOCUSATE SODIUM 100 MG CAPSULE PO SCH ×2 (08:14→19:31)
[2021-09-27 15:37] VITALS: BP 112/78
[2021-09-27 20:58] VITALS: BP 111/76
[2021-09-28] MEDS: MORPHINE SULFATE 2 MG/ML SYRINGE IVP PRN ×5 (04:54→18:17)
[2021-09-28 05:20] VITALS: BP 113/81
[2021-09-28] MEDS: LORazepam 2 MG/ML VIAL IVP SCH ×2 (08:42→16:13)
[2021-09-28] MEDS: DOCUSATE SODIUM 100 MG CAPSULE PO SCH ×2 (08:43→21:00)
[2021-09-28 08:52] VITALS: BP 118/69
[2021-09-28] MEDS ORDERED: SCOPOLAMINE HYDROBROMIDE 1 MG/72 HOUR PATCH TD ONE (12:30)
[2021-09-28 15:35] VITALS: BP 120/75
[2021-09-28] MEDS: BISACODYL 10 MG RECTAL RECTAL SUPPOSITORY PR PRN (16:05)
[2021-09-28] MEDS: DiphenhydrAMINE HCL 50 MG/ML VIAL IVP PRN (18:17)
[2021-09-28 21:57] VITALS: BP 112/79
[2021-09-29 07:03] VITALS: BP 112/72
[2021-09-29 08:13] VITALS: BP 119/72
[2021-09-29] MEDS: DOCUSATE SODIUM 100 MG CAPSULE PO SCH ×2 (09:09→21:00)
[2021-09-29] MEDS: LORazepam 2 MG/ML VIAL IVP SCH ×3 (09:09→16:35)
[2021-09-29] MEDS: MORPHINE SULFATE 2 MG/ML SYRINGE IVP PRN ×2 (13:17→16:35)
[2021-09-29 16:37] VITALS: BP 141/77
[2021-09-29 20:18] VITALS: BP 112/77
[2021-09-30 04:50] VITALS: BP 113/75
[2021-09-30 08:04] VITALS: BP 113/60
[2021-09-30] MEDS: LORazepam 2 MG/ML VIAL IVP SCH ×3 (08:04→15:37)
[2021-09-30] MEDS: DOCUSATE SODIUM 100 MG CAPSULE PO SCH ×2 (08:06→20:14)
[2021-09-30] MEDS: MORPHINE SULFATE 2 MG/ML SYRINGE IVP PRN ×3 (09:32→22:22)
[2021-09-30 15:35] VITALS: BP 118/68
[2021-09-30] MEDS: DiphenhydrAMINE HCL 50 MG/ML VIAL IVP PRN (18:49)
[2021-09-30 19:25] VITALS: BP 111/75
[2021-10-01] MEDS: LORazepam 2 MG/ML VIAL IVP SCH ×3 (02:34→15:51)
[2021-10-01 04:00] VITALS: BP 115/70
[2021-10-01 08:00] VITALS: BP 125/78
[2021-10-01] MEDS: DOCUSATE SODIUM 100 MG CAPSULE PO SCH ×2 (09:00→21:00)
[2021-10-01 15:47] VITALS: BP 133/91
[2021-10-01 19:40] VITALS: BP 116/89
[2021-10-02] MEDS: LORazepam 2 MG/ML VIAL IVP SCH ×4 (00:09→23:26)
[2021-10-02 03:30] VITALS: BP 116/76
[2021-10-02 08:25] VITALS: BP 134/82
[2021-10-02] MEDS: DOCUSATE SODIUM 100 MG CAPSULE PO SCH ×2 (09:00→20:40)
[2021-10-02 16:09] VITALS: BP 142/79
[2021-10-02 20:13] VITALS: BP 129/87
[2021-10-03 04:00] VITALS: BP 130/86
[2021-10-03 07:38] VITALS: BP 129/81
[2021-10-03] MEDS: DiphenhydrAMINE HCL 50 MG/ML VIAL IVP PRN ×2 (09:04→20:12)
[2021-10-03] MEDS: DOCUSATE SODIUM 100 MG CAPSULE PO SCH ×2 (09:05→20:14)
[2021-10-03] MEDS: LORazepam 2 MG/ML VIAL IVP SCH ×3 (09:05→23:57)
[2021-10-03 14:38] VITALS: BP 137/108
[2021-10-03 15:14] VITALS: BP 130/78
[2021-10-03] MEDS: MORPHINE SULFATE 2 MG/ML SYRINGE IVP PRN ×2 (17:53→20:12)
[2021-10-03 20:32] VITALS: BP 122/70
[2021-10-04 04:58] VITALS: BP 126/73
[2021-10-04 07:57] VITALS: BP 132/82
[2021-10-04] MEDS: DOCUSATE SODIUM 100 MG CAPSULE PO SCH ×2 (09:00→21:00)
[2021-10-04] MEDS: LORazepam 2 MG/ML VIAL IVP SCH ×2 (09:00→16:43)
[2021-10-04] MEDS: MORPHINE SULFATE 2 MG/ML SYRINGE IVP PRN ×3 (12:07→21:13)
[2021-10-04 15:28] VITALS: BP 113/72
[2021-10-04] MEDS: DiphenhydrAMINE HCL 50 MG/ML VIAL IVP PRN (21:13)
[2021-10-04 21:30] VITALS: BP 124/70
[2021-10-05] MEDS: LORazepam 2 MG/ML VIAL IVP SCH ×2 (01:36→08:12)
[2021-10-05] MEDS: MORPHINE SULFATE 2 MG/ML SYRINGE IVP PRN ×3 (03:36→10:33)
[2021-10-05 04:36] VITALS: BP 126/68
[2021-10-05] MEDS: DOCUSATE SODIUM 100 MG CAPSULE PO SCH (08:12)
[2021-10-05 08:15] VITALS: BP 94/57
== END 2021-10-05 11:45 | DRG 871 ==
LOC: EMS 11:37 → ICU 15:20 → 5S 09-03 12:00 → 6S 09-04 22:16
PROVIDERS: ADMIT Internal Medicine; ATTEND Internal Medicine
PROC: 5A09357 Assistance with Respiratory Ventilation, Less than 24 Consecutive Hours, Continuous Positive Airway Pressure (ICD-10-PCS; principal; 2021-08-28)
PROC: 5A09357 Assistance with Respiratory Ventilation, Less than 24 Consecutive Hours, Continuous Positive Airway Pressure (ICD-10-PCS; 2021-08-29)
PROC: 5A0935A Assistance with Respiratory Ventilation, Less than 24 Consecutive Hours, High Flow/Velocity Cannula (ICD-10-PCS; 2021-08-30)
PROC: 5A0935A Assistance with Respiratory Ventilation, Less than 24 Consecutive Hours, High Flow/Velocity Cannula (ICD-10-PCS; 2021-08-31)
PROC: 5A0935A Assistance with Respiratory Ventilation, Less than 24 Consecutive Hours, High Flow/Velocity Cannula (ICD-10-PCS; 2021-09-01)
PROC: 5A0935A Assistance with Respiratory Ventilation, Less than 24 Consecutive Hours, High Flow/Velocity Cannula (ICD-10-PCS; 2021-09-02)
PROC: 05HA33Z Insertion of Infusion Device into Left Brachial Vein, Percutaneous Approach (ICD-10-PCS; 2021-09-02)
PROC: 5A0935A Assistance with Respiratory Ventilation, Less than 24 Consecutive Hours, High Flow/Velocity Cannula (ICD-10-PCS; 2021-09-03)
PROC: 5A0935A Assistance with Respiratory Ventilation, Less than 24 Consecutive Hours, High Flow/Velocity Cannula (ICD-10-PCS; 2021-09-04)
PROC: 5A0935A Assistance with Respiratory Ventilation, Less than 24 Consecutive Hours, High Flow/Velocity Cannula (ICD-10-PCS; 2021-09-05)
PROC: 5A0935A Assistance with Respiratory Ventilation, Less than 24 Consecutive Hours, High Flow/Velocity Cannula (ICD-10-PCS; 2021-09-06)
PROC: 5A0935A Assistance with Respiratory Ventilation, Less than 24 Consecutive Hours, High Flow/Velocity Cannula (ICD-10-PCS; 2021-09-07)
PROC: 5A0935A Assistance with Respiratory Ventilation, Less than 24 Consecutive Hours, High Flow/Velocity Cannula (ICD-10-PCS; 2021-09-08)
PROC: 5A0935A Assistance with Respiratory Ventilation, Less than 24 Consecutive Hours, High Flow/Velocity Cannula (ICD-10-PCS; 2021-09-09)
PROC: 5A0935A Assistance with Respiratory Ventilation, Less than 24 Consecutive Hours, High Flow/Velocity Cannula (ICD-10-PCS; 2021-09-10)
PROC: 5A0935A Assistance with Respiratory Ventilation, Less than 24 Consecutive Hours, High Flow/Velocity Cannula (ICD-10-PCS; 2021-09-11)
PROC: 5A0935A Assistance with Respiratory Ventilation, Less than 24 Consecutive Hours, High Flow/Velocity Cannula (ICD-10-PCS; 2021-09-12)
PROC: 5A0935A Assistance with Respiratory Ventilation, Less than 24 Consecutive Hours, High Flow/Velocity Cannula (ICD-10-PCS; 2021-09-15)
PROC: 5A0935A Assistance with Respiratory Ventilation, Less than 24 Consecutive Hours, High Flow/Velocity Cannula (ICD-10-PCS; 2021-09-16)
PROC: 5A0935A Assistance with Respiratory Ventilation, Less than 24 Consecutive Hours, High Flow/Velocity Cannula (ICD-10-PCS; 2021-09-17)
PROC: 5A0935A Assistance with Respiratory Ventilation, Less than 24 Consecutive Hours, High Flow/Velocity Cannula (ICD-10-PCS; 2021-09-18)
PROC: 5A0935A Assistance with Respiratory Ventilation, Less than 24 Consecutive Hours, High Flow/Velocity Cannula (ICD-10-PCS; 2021-09-19)
PROC: 5A0935A Assistance with Respiratory Ventilation, Less than 24 Consecutive Hours, High Flow/Velocity Cannula (ICD-10-PCS; 2021-09-20)
PROC: 5A0935A Assistance with Respiratory Ventilation, Less than 24 Consecutive Hours, High Flow/Velocity Cannula (ICD-10-PCS; 2021-09-21)
PROC: 5A09357 Assistance with Respiratory Ventilation, Less than 24 Consecutive Hours, Continuous Positive Airway Pressure (ICD-10-PCS; 2021-09-22)
PROC: 5A0935A Assistance with Respiratory Ventilation, Less than 24 Consecutive Hours, High Flow/Velocity Cannula (ICD-10-PCS; 2021-09-22)
PROC: 5A0935A Assistance with Respiratory Ventilation, Less than 24 Consecutive Hours, High Flow/Velocity Cannula (ICD-10-PCS; 2021-09-23)
PROC: 5A0935A Assistance with Respiratory Ventilation, Less than 24 Consecutive Hours, High Flow/Velocity Cannula (ICD-10-PCS; 2021-09-24)
PROC: 5A0935A Assistance with Respiratory Ventilation, Less than 24 Consecutive Hours, High Flow/Velocity Cannula (ICD-10-PCS; 2021-09-25)
PROC: 5A0935A Assistance with Respiratory Ventilation, Less than 24 Consecutive Hours, High Flow/Velocity Cannula (ICD-10-PCS; 2021-09-26)
PROC: 5A0935A Assistance with Respiratory Ventilation, Less than 24 Consecutive Hours, High Flow/Velocity Cannula (ICD-10-PCS; 2021-09-27)
PROC: 5A0935A Assistance with Respiratory Ventilation, Less than 24 Consecutive Hours, High Flow/Velocity Cannula (ICD-10-PCS; 2021-09-28)
PROC: 5A0935A Assistance with Respiratory Ventilation, Less than 24 Consecutive Hours, High Flow/Velocity Cannula (ICD-10-PCS; 2021-09-29)
PROC: 5A0935A Assistance with Respiratory Ventilation, Less than 24 Consecutive Hours, High Flow/Velocity Cannula (ICD-10-PCS; 2021-09-30)
PROC: 5A0935A Assistance with Respiratory Ventilation, Less than 24 Consecutive Hours, High Flow/Velocity Cannula (ICD-10-PCS; 2021-10-01)
PROC: 5A0935A Assistance with Respiratory Ventilation, Less than 24 Consecutive Hours, High Flow/Velocity Cannula (ICD-10-PCS; 2021-10-02)
PROC: 5A0935A Assistance with Respiratory Ventilation, Less than 24 Consecutive Hours, High Flow/Velocity Cannula (ICD-10-PCS; 2021-10-03)
PROC: 5A0935A Assistance with Respiratory Ventilation, Less than 24 Consecutive Hours, High Flow/Velocity Cannula (ICD-10-PCS; 2021-10-04)
PROC: 5A0935A Assistance with Respiratory Ventilation, Less than 24 Consecutive Hours, High Flow/Velocity Cannula (ICD-10-PCS; 2021-10-05)
DX: A41.9 Sepsis, unspecified organism (principal); J18.9 Pneumonia, unspecified organism; J96.22 Acute and chronic respiratory failure with hypercapnia; J96.21 Acute and chronic respiratory failure with hypoxia; E43 Unspecified severe protein-calorie malnutrition; I50.43 Acute on chronic combined systolic (congestive) and diastolic (congestive) heart failure; J84.9 Interstitial pulmonary disease, unspecified; J47.0 Bronchiectasis with acute lower respiratory infection; G93.40 Encephalopathy, unspecified; I42.9 Cardiomyopathy, unspecified; I48.19 Other persistent atrial fibrillation; J47.1 Bronchiectasis with (acute) exacerbation; R64 Cachexia; Z87.01 Personal history of pneumonia (recurrent); D64.9 Anemia, unspecified; I49.3 Ventricular premature depolarization; K21.9 Gastro-esophageal reflux disease without esophagitis; E87.6 Hypokalemia; I07.1 Rheumatic tricuspid insufficiency; F03.90 Unspecified dementia, unspecified severity, without behavioral disturbance, psychotic disturbance, mood disturbance, and anxiety; I35.1 Nonrheumatic aortic (valve) insufficiency; J84.10 Pulmonary fibrosis, unspecified; E03.9 Hypothyroidism, unspecified; R04.0 Epistaxis; R62.7 Adult failure to thrive; Z66 Do not resuscitate; J43.9 Emphysema, unspecified; Z51.5 Encounter for palliative care; Z87.891 Personal history of nicotine dependence; Z99.81 Dependence on supplemental oxygen; Z68.23 Body mass index [BMI] 23.0-23.9, adult
CPT/HCPCS: 36245; 36569; 36600; 70450; 71045; 71275; 76937; 80048; 80053; 80202; 81001; 81003; 82550; 82805; 83605; 83735; 83880; 84132; 84145; 84443; 84484; 85025; 85379; 85610; 87040; 87081; 87804; 92526; 92610; 93005; 93306; 94644; 94660; 94760; 94761; 99291; G0378; J0131; J0282; J0456; J0696; J1200; J1644; J1650; J1940; J2060; J2270; J2405; J2543; J2930; J3370; J3430; J3480; J7040; J7050; J7060; Q9967; 36415-L1; 36415-TC; J7611; U0003